=== PATIENT | male | born 1940 | race Caucasian/White ===

== ENCOUNTER → 2016-09-10 | Outpatient (CLI) | payer MEDICARE ==
[~2016-09-10] MED LIST: ASPIRIN PO; ATORVASTATIN CA20 MG PO; BAYER CHEWABLE81 MG PO; CARAFATE1 G PO; CIPRO PO; CIPRO250 M1; CIPRO750 MG PO; CORRECTOL5 MG PO; FLOMAX0.4 M1 PO; HYDROCODON-ACE1 EAC1 PO; HYDROCODON-ACE1 EAC7 PO; ISOSORBIDE DINI30 MG PO; ISOSORBIDE MONO30 M1 PO; LIPITOR PO; LIPITOR20 MG PO; LISINOPRIL PO; LISINOPRIL20 MG PO; LO-DOSE ASPIRIN81 M1 PO; LOPRESSOR PO; LORTAB 7.5-5001 TAB PO; METHIMAZOLE10 MG PO; METOPROLOL SUCC25 MG PO; METOPROLOL TAR25 MG PO; NEXIUM PO; NITRO-DUR 0.1M0.1 MG PO; NORCO1 TAB 10/3 PO; OMEPRAZOLE40 M1 PO; PANTOPRAZOLE SO40 MG PO; PERCOCET5/325 PO; PHENERGAN25 M1 PO; PRILOSEC20 M1 PO; PRINIVIL20 M1 PO; PROPYLTHIOURACIL; PROPYLTHIOURACIL PO; PROPYLTHIOURACIL1 GM PO; PROPYLTHIOURACL PO; VITAMIN B650 M1 PO; ZOCOR PO
--- NOTE | ~2016-09-10 | CT130 ---
[facility] A Service of [facility] RADIOLOGY TEXT RESULTS PATIENT: VIRGIL HENSON LOCATION: [facility] : 41 UNIT #: [id number] AGE: [address]: SAGAR DIAZ APRN SEX: M ORDER DR: [id number] [facility] [address] [place], [place] [address] [id number] O MR#: [id number] Acc #: [id number] NAME: VIRGIL HENSON : 1940 SEX: M STUDY DATE/TIME: 09/10/2016 13:09 UNIT: [facility] ROOM: STUDY DESCRIPTION: CT Upper Ext Rt Wo Cont Attending Physician: Sagar Diaz Aprn Referring Physician: Sagar Diaz Aprn Ordering Physician: Sagar Diaz Aprn Primary Care Physician: Marcel Pizarro Jr., M.D. MEDICAL IMAGING REPORT This report is preliminary unless electronic signature is present EXAM CT right upper extremity HISTORY 76-year-old male with rotator cuff arthropathy. Preoperative planning. TECHNIQUE Thin section axial images were performed through the right shoulder with sagittal and coronal reconstructed images reviewed at a workstation. No intraarticular contrast or intravenous contrast injected. FINDINGS Examination demonstrates abutment of the humeral head to the undersurface of the acromion over at least a 2 cm length. This is compatible with a full-thickness rotator cuff tear and probably represents a full-thickness tear of the supraspinatus tendon. There is corresponding muscle atrophy with diffuse fatty atrophy of the supraspinatus. This would suggest a more longstanding and possible complete tear. The infraspinatus tendon is less clearly evaluated, but there does appear to be some atrophy of the cranial fibers of the infraspinatus, which suggests further extension of the rotator cuff tear. The teres minor tendons appear intact. The subscapularis tendon is attenuated with some mild subscapularis atrophy. A distinct tear is not identified. Glenoid bone stock appears normal. Minimal arthritic changes with sclerosis along the humeral head articular surface. No joint effusion. AC joint unremarkable for age. The deltoid unremarkable. IMPRESSION 1. Elevated humeral head with abutment of the humeral head to the undersurface the acromion consistent with a full-thickness rotator cuff tear estimated at least 2 cm in AP dimension with associated supraspinatus muscle atrophy. I also suspect the tear may extend to STS. [facility] A Service of [facility] RADIOLOGY TEXT RESULTS PATIENT: VIRGIL HENSON LOCATION: [facility] : 41 UNIT #: [id number] AGE: [address]: SAGAR DIAZ APRN SEX: M ORDER DR: involve the infraspinatus tendon due to the associated infraspinatus muscle atrophy, though this is less clearly identified on a non-arthrographic CT. 2. Only minimal glenohumeral joint osteoarthritis identified. The glenoid bone stock appears normal. Dictated by... Donavan Walker M.D. THIS IS AN ELECTRONICALLY VERIFIED REPORT Donavan Walker M.D. at 09/11/2016 6:35 PM Hilda TD: 09/10/2016 18:40 JOB #: [id number] MEDICAL IMAGING REPORT Page 1 of 1 COPY
== END | disposition home or self-care (01) ==
LOC: CCAT 11:31
DX: Z01.818 Encounter for other preprocedural examination (principal); M12.811 Other specific arthropathies, not elsewhere classified, right shoulder; M19.011 Primary osteoarthritis, right shoulder
CPT/HCPCS: 36415; 73200; 80048; 81003; 85027; 87070; 93005

== ENCOUNTER 2016-09-16 05:29 | Inpatient (IN) | payer MEDICARE ==
--- NOTE | ~2016-09-16 | DS ---
Unit #: [id number] #: [id number] Patient: VIRGIL HENSON [id number] [address] [place], [place] [address] [id number] I MR#: [id number] NAME: VIRGIL HENSON ROOM: 460 Age: 76 Sex: M Admission Date: 09/16/2016 : 1940 Discharge Date: 09/17/2016 Attending Physician: Zach Shea M.D. Primary Care Physician: Marcel Pizarro Jr., M.D. DISCHARGE SUMMARY ADMITTING DIAGNOSIS Right rotator cuff tear arthropathy. DISCHARGE DIAGNOSIS Right rotator cuff tear arthropathy, status post right reverse shoulder arthroplasty. ATTENDING Dr. Shea, Orthopedic Surgery. CONSULTING PHYSICIAN Dr. Tsang, Cardiology. PROCEDURE On September 16, 2016, the patient underwent a right reverse shoulder arthroplasty. Please see operative report for further details. BRIEF HISTORY Mr. Henson is a patient of ours, who we have been treating for right rotator cuff arthropathy conservatively. At this point, he has failed to get any lasting relief from conservative management of his right rotator cuff tear arthropathy. We recommended a right reverse shoulder arthroplasty to him in the office. The risks, benefits, and alternatives were discussed with the patient and he elected to proceed with surgery on September 16, 2016. Prior to surgery, cardiac clearance was obtained from his qualitative researcher, Dr. Couch. He did recommend that while hospitalized the patient be followed by cardiology and placed on telemetry. HOSPITAL COURSE On the night of surgery, the patient was transferred to the orthopedic unit for postoperative care. The patient was placed on telemetry for cardiac monitoring. Postop x-rays of the right shoulder demonstrated that he was status post right reverse shoulder arthroplasty. Hardware remained in correct anatomical alignment. No evidence of loosening or migration. The patient was seen by cardiology for postop monitoring. An EKG and labs were then ordered. The patient remained stable. On postop day #1, the patient's vital signs remained stable. He was awake, alert, and oriented x3 and in no acute distress. His right upper extremity incision was clean, dry, and intact with no surrounding erythema, warmth, or hematoma. He had a 130 mL of serosanguineous drainage out in his Hemovac drain overnight. This was discontinued in the room today. He was neurovascularly intact in the median, ulnar, and radial nerves. He had normal sensation to light touch in all five digits. Unit #: [id number] #: [id number] Patient: VIRGIL HENSON His white blood cell count was 13.7 and hemoglobin was 13.1. The patient was not complaining of any cough or shortness of breath. We will have him continue using the incentive spirometry 10 times an hour while awake. It is not felt that any further workup was needed at this time. He is nonweightbearing of the right upper extremity in his sling. Will have him work with physical therapy today on pendulums as well as range of motion of the elbow, wrist, and hands. He was on aspirin and placed in SCDs for DVT prophylaxis. After working with physical therapy today, we will plan to send him home as cleared by physical therapy as well as cardiology. The patient complains of right shoulder pain but he states that this is controlled with his current pain medications. CONDITION AT DISCHARGE Stable. DISPOSITION The patient will be discharged home where he has family to help with postoperative care. DISCHARGE MEDICATIONS 1. Atorvastatin 20 mg p.o. daily. 2. Propylthiouracil 50 mg p.o. t.i.d. 3. Metoprolol tartrate 12.5 mg p.o. b.i.d. 4. Lisinopril 20 mg p.o. daily. 5. Aspirin 81 mg p.o. daily. 6. Isosorbide 30 mg p.o. daily. 7. Vitamin B6 at 50 mg p.o. daily. 8. Percocet 5/325 mg one to two tabs p.o. q.4 hours p.r.n. Patient was sent home with a prescription for Percocet to dispense 65 tabs. DISCHARGE INSTRUCTIONS AND FOLLOWUP The patient will follow up with Dr. Shea in two weeks' time for repeat x-rays of the right shoulder. He will remain nonweightbearing of the right upper extremity in his sling. He may remove his sling two to three times per day to perform pendulums as well as range of motion of the elbow, wrist, and hand. The patient may shower but he is not to get his incision wet. He must keep an inclusive dressing over the incision site when showering. He will perform daily dressing changes to the right upper extremity incision. Dictated by... Sagar Diaz APRN for Lui Jernigan TD: 09/17/2016 12:24 JOB #: [id number] Unit #: [id number] #: [id number] Patient: VIRGIL HENSON DISCHARGE SUMMARY Page 1 of 1 X SAGAR DIAZ APRN X DISCHARGE SUMMARY
--- NOTE | ~2016-09-16 | CO ---
Unit #: [id number] #: [id number] Patient: VIRGIL HENSON [id number] [address] [place], [place] [address] [id number] I MR#: [id number] NAME: VIRGIL HENSON ROOM: 460 Age: 76 Sex: M Admission Date: 09/16/2016 : 1940 Attending Physician: Zach Shea M.D. Primary Care Physician: Marcel Pizarro Jr., M.D. Consultation Date: 09/16/2016 CONSULTATION REPORT REASON FOR CONSULTATION Consult is request by Dr. Shea for bradycardia and coronary artery disease. HISTORY OF PRESENT ILLNESS Mr. Henson is a 76-year-old male that has had right rotator cuff arthropathy for some time. He has received an injection, which only gave him relief for approximately four days. He was unable to perform activities involving reaching overhead and had limited range of motion. He was scheduled then for right rotator cuff arthroplasty today. He has completed this procedure and we have been consulted postoperatively due to bradycardia and history of coronary artery disease. Currently he is very stable. This information is received from record review, as well as from patient interview. His prior cardiac testing history includes a left heart catheterization on 06/27/2015, which showed EF of 55% to 60%, severe triple vessel coronary artery disease with patent DURAN to LAD, patent saphenous vein graft to diagonal, patent saphenous vein graft to circumflex system, totally occluded saphenous vein graft to RCA with significant lesion in [place] RCA, unsuccessful PTCA attempt of the mid RCA. EKG completed preoperatively shows sinus bradycardia. PAST MEDICAL HISTORY 1. Includes coronary artery disease with a four vessel coronary artery bypass grafting with DURAN to LAD, saphenous vein graft to second obtuse, marginal, RCA on 08/21/2016 of 2008. 2. Hypertension. 3. MRSA. 4. Paroxysmal atrial fibrillation. 5. Kidney stones. 6. Hyperlipidemia. 7. PVD with CEA in 2011 and 2013. 8. Bradycardia longstanding with slight dizziness with position change, however, controlled and causing no problems, followed by Dr. Couch' office. 9. Celiac artery stenosis. 10. Superior mesenteric artery stenosis. 11. Degenerative disc disease. 12. Esophageal stenosis. 13. Ulcer with perforation. 14. (1) trial dysfunction. 15. Peripheral neuropathy. Unit #: [id number] #: [id number] Patient: VIRGIL HENSON 16. T12 compression fracture. 17. Hiatal hernia repair. ALLERGIES No known drug allergies. HOME MEDICATIONS 1. Aspirin 81 mg daily. 2. Propylthiouracil 50 mg 3 times a day. 3. Lopressor 12.5 mg twice daily. 4. Isosorbide dinitrate 30 mg q. a.m. 5. Prinivil 20 mg at noon. 6. Atorvastatin 20 mg q. p.m. 7. Vitamin B6 50 mg q. a.m. SOCIAL HISTORY He quit smoking over 40 years ago. He was a drinker of an occasional beer in 2008 when he quit using alcohol all together. He denies the use of drugs. FAMILY HISTORY His mother had a permanent pacemaker. REVIEW OF SYSTEMS GENERAL: Denies any fever, chills, flu-like symptoms or any residual weight loss. SKIN: Denies any rashes, ulcerations or wounds. HEAD: Headache. EYES: Denies any sudden change in vision. EARS: Denies any sudden change in hearing. BLEEDING: Denies epistaxis, hemoptysis, hematuria or melena. THROAT: Denies any problems swallowing. LUNGS: Denies any wheeze, cough or shortness of breath. CHEST: Denies any pain, palpitations, tachycardia, PND, or orthopnea. GI: Denies any nausea, vomiting, diarrhea, constipation or change in stools. : Denies any burning or urgency. EXTREMITIES: Denies any swelling or increased pain with walking. SPINE: Chronic back pain. No scoliosis. NEUROLOGIC: Some bilateral lower extremity cramping but no numbness or tingling. No seizures, stroke-like symptoms or dizziness, unsteadiness or falls. PHYSICAL EXAMINATION VITAL SIGNS: Blood pressure is 104/62, pulse is 82, respirations 18, temperature 97.4. He is 100% oxygenated. GENERAL: Well-developed, well-nourished white male in no acute distress, sitting in the bed. SKIN: No obvious rashes or ulcerations noted. He does have an occlusive dressing to the right shoulder with a large immobilizer in place. EYES: PERRLA. No xanthelasma. ORAL: Moist mucous membranes. No pallor. NECK: No carotid bruits auscultated bilaterally. SPINE: Not assessed. CHEST: Clear to auscultation bilaterally. No wheezes, rales or rhonchi. CARDIAC: S1 and S2. No murmur, rub, gallop or lift. ABDOMEN: Soft, nontender. Positive bowel sounds. EXTREMITIES: Bilateral pedal pulses +2. No edema. Unit #: [id number] #: [id number] Patient: VIRGIL HENSON NEUROLOGIC: Alert and oriented x3. Speech is clear. No obvious neuro deficits. DIAGNOSTIC STUDIES LABS/TEST: Satisfactory repair to the right shoulder arthroplasty. Frontal abdomen shows a probable 4 to 5 mm stone at the level of the mid to upper pole of the left kidney and there is chronic compression fracture of T12. MRSA screen is negative. CT of the right upper extremity shows elevated humeral head with abutment of the humeral head to the undersurface of the acromion consistent with full thickness rotator cuff tear, estimated at 2 cm in AP dimension with associated supraspinatus muscle atrophy. IMPRESSION 1. Postop day 0 of right reverse shoulder arthroplasty. 2. Bradycardia, which is controlled and chronic, asymptomatic. 3. Coronary artery disease with history of coronary artery bypass grafting 2008. 4. Paroxysmal atrial fibrillation currently with sinus rhythm. 5. Hypertension. 6. Peripheral vascular disease with history of bilateral CEA. PLAN We will continue to follow this patient during his hospitalization. Postoperatively we will complete a troponin as well as a 12 lead EKG. His vital signs appear stable at this time. He will followup with Dr. 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 Thank you for this consultation. We will be happy to follow this patient with you. Dictated by... Kevyn McadamsPShellyRJer. for Lui To TD: 09/17/2016 06:56 JOB #: [id number] CONSULTATION REPORT Page 1 of 1 X X CONSULTATION REPORT
--- NOTE | ~2016-09-16 | EKG ---
PATIENT: VIRGIL HENSON UNIT #: [id number] Ventricular Rate: 74 BPM Atrial Rate: 74 BPM P-R Interval: 170 ms QRS Duration: 102 ms Q-T Interval: 408 ms QTC Calculation(Bezet): 452 ms P Mckee: 13 degrees Calculated R Mckee: 30 degrees Calculated T Mckee: 25 degrees Diagnosis Line: Normal sinus rhythm Diagnosis Line: Cannot rule out Lateral infarct , age undetermined Diagnosis Line: Otherwise normal ECG Diagnosis Line: When compared with ECG of 10-SEP-2016 11:59, Diagnosis Line: Vent. rate has increased BY 26 BPM Diagnosis Line: Confirmed by SURI PAYTON MD ([id number]) on 09/24/2016 Diagnosis Line: 11:43:55 AM INTERPRETING MD: TATA HUNTLEY
--- NOTE | ~2016-09-16 | OR ---
Unit #: [id number] #: [id number] Patient: VIRGIL HENSON [id number] [address] [address] [id number] I MR#: [id number] NAME: VIRGIL HENSON ROOM: 460 Date of Procedure: 09/16/2016 Admission Date: 09/16/2016 Surgeon: Zach Shea M.D. : 1940 Attending Physician: Zach Shea M.D. Primary Care Physician: Marcel Pizarro Jr., M.D. OPERATIVE REPORT PREOPERATIVE DIAGNOSIS Right shoulder cuff tear arthropathy. POSTOPERATIVE DIAGNOSES 1. Right shoulder cuff tear arthropathy. 2. Right shoulder long head biceps tenosynovitis. PROCEDURES PERFORMED 1. Right reverse shoulder arthroplasty. 2. Right shoulder biceps tenodesis. IMPLANTS 1. [employer] P2 baseplate with a 32 neutral glenosphere. 2. DJO Surgical AltiVate size 10 press-fit humeral stem with a 32 neutral humeral socket liner. HEALTH PROMOTION COORDINATOR Nora Ross. ANESTHESIA General with interscalene nerve block. ESTIMATED BLOOD LOSS 125 mL. DRAINS Medium Hemovac x1. SPECIMENS Humeral head to pathology. COMPLICATIONS None apparent. INDICATIONS FOR PROCEDURE Mr. Henson is a 76-year-old gentleman with right shoulder cuff tear arthropathy. He has failed conservative management with therapy, injections, and oral medications. He now presents for definitive surgical treatment with a right reverse shoulder arthroplasty. Risks, benefits, and alternatives have been reviewed. DESCRIPTION OF PROCEDURE Unit #: [id number] #: [id number] Patient: VIRGIL HENSON The patient was identified in the preoperative holding area. The operative site was marked. A regional anesthetic block was performed. Preoperative antibiotics were administered. The patient was brought to the operating room and placed supine on the operating table. A general anesthetic was induced. The patient was positioned in the beach-chair position. The right upper extremity was prepped and draped in sterile fashion. A standard deltopectoral approach was performed. The cephalic vein was retracted medially with the pectoralis major muscle. The subdeltoid space was developed. The humeral head was inspected and was devoid of supraspinatus tendon. The subscapularis was intact. A portion of the infraspinatus was intact as well. The long head of the biceps tendon sheath was opened. There was proliferative tenosynovium noted. A biceps tenodesis was performed to the superior border of the pectoralis major tendon utilizing a #2 FiberWire with a locking stitch. The proximal extent of the biceps was excised. The subscapularis was released in a subscapularis peel directly off bone. The shoulder was then formally dislocated anteriorly. Any osteophytes were removed with a curved osteotome. The extramedullary cutting guide was then secured and a humeral head osteotomy was performed. A circumferential capsulolabral release was performed. The shoulder was dislocated posteriorly. Once we had adequate access to the glenoid, we then drilled our centering hole and inserted the reaming tap. The glenoid was reamed to the desired depth with the starter and small reamers. We then inserted the baseplate, which achieved excellent purchase in the scapula. We then placed 4 peripheral locking screws, which included a 22 superiorly, 26 inferiorly, and 18 anteriorly and posteriorly. The 32 neutral glenosphere was then secured along with the set screw. The humerus was delivered anteriorly back into the operative field. A freehand ball reaming technique was performed of the humerus. We then hand-reamed up to a size 10. A size 10 stem was opened and impacted in place. This achieved excellent press-fit. We then trialed and opened the 32 neutral humeral socket liner. This was impacted in place and then the shoulder was reduced. The arm was taken through range of motion and was stable on trialing. The wound was then irrigated with a dilute Betadine solution followed by pulsatile lavage. The wound was closed over a drain with 0 Vicryl, 2-0 Vicryl, and Monocryl on the skin. Steri-Strips and sterile dressings were applied. The patient was placed in a shoulder immobilizer. DISPOSITION Stable to the recovery room. Dictated by... Lui Jernigan/singh TD: 09/17/2016 01:48 JOB #: [id number] Unit #: [id number] #: [id number] Patient: VIRGIL HENSON OPERATIVE REPORT Page 1 of 1 X Zach Shea MD PROCEDURE OPERATIVE NOTE
--- NOTE | ~2016-09-16 | CR230 ---
[facility] A Service of [facility] RADIOLOGY TEXT RESULTS PATIENT: VIRGIL HENSON LOCATION: [place] [address]- : 41 UNIT #: [id number] AGE: [address]: Zach Shea MD SEX: M ORDER DR: [id number] [facility] [address] [place] [address] [place], [place] [address] [id number] I MR#: [id number] Acc #: [id number] NAME: VIRGIL HENSON : 1940 SEX: M STUDY DATE/TIME: 09/16/2016 10:26 UNIT: [id number] ROOM: STUDY DESCRIPTION: CR Shoulder Min 2 View Rt Attending Physician: Zach Shea M.D. Ordering Physician: Zach Shea M.D. Primary Care Physician: Marcel Pizarro Jr., M.D. MEDICAL IMAGING REPORT This report is preliminary unless electronic signature is present EXAM Right shoulder, 09/16 INDICATION Status post arthroplasty today for shoulder pain. FINDINGS 2 views of right shoulder are compared with 08/17/2016. There has been interval total arthroplasty. Hardware appears well-aligned. Soft tissue drain is present. There is some mild AC joint arthropathy. IMPRESSION Satisfactory appearance of right shoulder arthroplasty. Dictated by... Kvng Jarvis Jr., M.D. THIS IS AN ELECTRONICALLY VERIFIED REPORT Kvng Jarvis Jr., M.D. at 09/16/2016 4:42 PM CAT/kirit TD: 09/16/2016 11:38 JOB #: [id number] MEDICAL IMAGING REPORT Page 1 of 1 COPY
[2016-09-17 03:30] LABS: BASOPHIL# 0.1 X10e3 (0-0.3); BASOPHIL% 0.4 % (0-2.5); EOSINOPHIL# 0.2 X10e3 (0-0.7); EOSINOPHIL% 1.4 % (0.0-7.0); HEMATOCRIT 38.6 % (38.0-50.0); HEMOGLOBIN 13.1 gm/dL (13.0-16.0); LYMPHOCYTE# 2.5 X10e3 (1.0-3.5); LYMPHOCYTE% 18.1 % (17.0-45.0); MEAN CELL VOLUME 97.9 FL (83-96); MEAN CORPUSCULAR HEMOGLOBIN 33.2 PG (28-34); MEAN CORPUSCULAR HGB CONC 33.9 g/dL (30-36); MEAN PLATELET VOLUME 8.2 FL (6.5-11.5); MONOCYTE# 1.9 X10e3 (0-1.0); MONOCYTE% 14.1 % (3.0-12.0); PLATELET COUNT 164 X10e3 (140-420); RED BLOOD COUNT 3.94 X10e (3.90-5.60); RED CELL DISTRIBUTION WIDTH 14.1 % (11.0-15.5); WHITE BLOOD COUNT 13.7 X10e3 (4.0-10.5)
[2016-09-17 03:34] LABS: DIFF IND NO
[2016-09-17] MEDS ORDERED: PERCOCET5/325 PO (10:37)
== END 2016-09-17 12:52 | disposition home or self-care (01) | DRG 483 ==
LOC: CSUR 05:29 → CPACUOF 07:15 → C4B 13:15
PROVIDERS: Orthopaedic Surgery
PROC: 0LS30ZZ Reposition Right Upper Arm Tendon, Open Approach (ICD-10-PCS; 2016-09-16)
PROC: 0RRJ00Z Replacement of Right Shoulder Joint with Reverse Ball and Socket Synthetic Substitute, Open Approach (ICD-10-PCS; principal; 2016-09-16 07:30)
DX: M19.011 Primary osteoarthritis, right shoulder (principal); K55.1 Chronic vascular disorders of intestine; G62.9 Polyneuropathy, unspecified; I77.4 Celiac artery compression syndrome; R00.1 Bradycardia, unspecified; I48.0 Paroxysmal atrial fibrillation; E05.90 Thyrotoxicosis, unspecified without thyrotoxic crisis or storm; I10 Essential (primary) hypertension; E78.5 Hyperlipidemia, unspecified; I25.10 Atherosclerotic heart disease of native coronary artery without angina pectoris; Z79.82 Long term (current) use of aspirin; Z95.1 Presence of aortocoronary bypass graft; Z86.14 Personal history of Methicillin resistant Staphylococcus aureus infection; Z87.442 Personal history of urinary calculi; Z87.891 Personal history of nicotine dependence; Z82.61 Family history of arthritis; Z80.9 Family history of malignant neoplasm, unspecified
CPT/HCPCS: 73030; 74000; 84484; 85025; 93005; 94760; 97110; 97116; 97161; 97530; C1713; C1776; G8978-GP; G8979-GP; G8980-GP; J0131; J0330; J0690; J2270; J2405; J2795; J3010; J3370

== ENCOUNTER 2016-11-02 00:54 | Emergency (ER) | payer MEDICARE ==
--- NOTE | ~2016-11-02 | CT4 ---
[facility] A Service of [facility] RADIOLOGY TEXT RESULTS PATIENT: VIRGIL HENSON LOCATION: [place] : 41 UNIT #: [id number] AGE: [address]: Justin Deluna MD SEX: M ORDER DR: [id number] [place] [id number] E MR#: [id number] Acc #: [id number] NAME: VIRGIL HENSON : 1940 SEX: M STUDY DATE/TIME: 11/02/2016 1:52 UNIT: SED ROOM: STUDY DESCRIPTION: CT Abd and Pelv Wo Cont Attending Physician: Justin Deluna M.D. Ordering Physician: Justin Deluna M.D. Primary Care Physician: Marcel Pizarro Jr., M.D. MEDICAL IMAGING REPORT This report is preliminary unless electronic signature is present. EXAM CT abdomen and pelvis, noncontrast, kidney stone protocol, 11/02/2016. HISTORY 76-year-old male in the ED complaining of left side abdomen pain and vomiting beginning earlier tonight. Past history of kidney stones with lithotripsy. TECHNIQUE CT examination of the abdomen and pelvis without oral or IV contrast using kidney stone protocol. The CT exam was performed with one or more of the following radiation dose reduction techniques: automatic exposure control, adjustment of mA and/or kV according to patient size, and iterative reconstruction. ABDOMEN FINDINGS: There is a 4 mm obstructing calculus in the left distal ureter at the UVJ causing moderate left hydronephrosis. Multiple tiny nonobstructing calculi are scattered throughout the medullary portions of both kidneys. Small right mid renal cyst. Multiple small gallstones within a nondistended gallbladder. No bile duct dilatation. Liver, pancreas and spleen are within normal limits without contrast. Moderate sigmoid and lower descending colonic diverticulosis. Small bowel and colon are otherwise normal in caliber and appearance, as imaged. The appendix is not seen. Postop changes of ventral hernia repair surgery. Normal-caliber abdominal aorta. PELVIS FINDINGS [facility] A Service of [facility] RADIOLOGY TEXT RESULTS PATIENT: VIRGIL HENSON LOCATION: [facility] : 41 UNIT #: [id number] AGE: [address]: Justin Deluna MD SEX: M ORDER DR: Bladder, prostate and rectum are within normal limits. No inguinal hernia. IMPRESSION 1. Obstructing 4 mm left distal ureter calculus at the UVJ causing moderate left hydronephrosis. 2. Multiple nonobstructing tiny bilateral renal calculi. 3. Cholelithiasis. No bile duct dilatation. 4. Colonic diverticulosis. 5. Postop changes ventral hernia repair surgery. Dictated by... Eze Dhillon M.D. THIS IS AN ELECTRONICALLY VERIFIED REPORT Eze Dhillon M.D. at 11/02/2016 9:57 PM CANDACE/rudy TD: 11/02/2016 09:08 JOB #: [id number] MEDICAL IMAGING REPORT Page 1 of 1
[2016-11-02 01:38] LABS: BASOPHIL% 0.2 % (0-2.5); EOSINOPHIL# 0.2 X10e3 (0-0.7); EOSINOPHIL% 1.9 % (0.0-7.0); HEMATOCRIT 39.3 % (38.0-50.0); HEMOGLOBIN 13.5 gm/dL (13.0-16.0); LYMPHOCYTE# 1.7 X10e3 (1.0-3.5); LYMPHOCYTE% 20.2 % (17.0-45.0); MEAN CELL VOLUME 97.2 FL (83-96); MEAN CORPUSCULAR HEMOGLOBIN 33.3 PG (28-34); MEAN CORPUSCULAR HGB CONC 34.3 g/dL (30-36); MEAN PLATELET VOLUME 7.2 FL (6.5-11.5); MONOCYTE# 0.8 X10e3 (0-1.0); MONOCYTE% 8.9 % (3.0-12.0); NEUTROPHIL# 5.9 X10e3 (1.5-7.1); NEUTROPHIL% 68.8 % (40-75); PLATELET COUNT 289 X10e3 (140-420); RED BLOOD COUNT 4.04 X10e (3.90-5.60); RED CELL DISTRIBUTION WIDTH 14.5 % (11.0-15.5); WHITE BLOOD COUNT 8.5 X10e3 (4.0-10.5)
[2016-11-02 01:45] LABS: DIFF IND NO
[2016-11-02 01:59] LABS: BILIRUBIN, DIRECT 0.2 mg/dL (0.0-0.2); BILIRUBIN,TOTAL 1.2 mg/dL (0.2-2.0); BUN/CREATININE RATIO 14.44; CALCIUM SERUM 8.7 mg/dL (8.4-10.2); CREATININE SERUM 0.9 mg/dL (0.6-1.4); GLOM FILT RATE Estimated 83.3 mL/min (>60); PROTEIN TOTAL SERUM 6.9 g/dL (6.0-8.3)
[2016-11-02 02:06] LABS: URINE SOURCE CLEAN CATCH
[2016-11-02 02:08] LABS: URINE APPEARANCE CLEAR; URINE BILIRUBIN NEG (NEG); URINE BLOOD 3+ (NEG); URINE COLOR DK YELLOW; URINE GLUCOSE NEG (NORM); URINE KETONE NEG (NEG); URINE LEUKOCYTE ESTERASE NEG (NEG); URINE NITRATE NEG (NEG); URINE PROTEIN TRACE (NEG); URINE SPECIFIC GRAVITY >=1.030 (1.003-1.035); URINE UROBILINOGEN 0.2 MG/DL (NORM)
[2016-11-02 02:09] LABS: MICRO INDICATED? YES
[2016-11-02 02:16] LABS: URINE RBC 200-300 /[HPF] (0-2)
[2016-11-02 02:17] LABS: CULTURE INDICATED? NO; URINE BACTERIA NEG (NEG); URINE WBC 0-2 /[HPF] (0-5)
== END 2016-11-02 02:51 | disposition home or self-care (01) ==
LOC: SED 00:54
PROVIDERS: Emergency Medicine
DX: N13.2 Hydronephrosis with renal and ureteral calculous obstruction (principal); E87.6 Hypokalemia; E05.90 Thyrotoxicosis, unspecified without thyrotoxic crisis or storm; Z86.14 Personal history of Methicillin resistant Staphylococcus aureus infection; Z95.1 Presence of aortocoronary bypass graft
CPT/HCPCS: 36415; 74176; 80048; 80076; 81003; 83690; 85025; 96374; 96375; 99284; J2270; J2405